=== PATIENT | female | born 1995 | race Caucasian/White ===

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

== ENCOUNTER 2017-12-22 23:55 | Emergency (ER) | payer MEDICAID, OTHER ==
[~2017-12-22] VITALS: Ht 167.6 cm; Wt 72.6 kg
[2017-12-22 23:57] VITALS: BP 123/88
[2017-12-23] MEDS ORDERED: IBUPROFEN 600 MG TABLET PO ONE (00:30)
== END 2017-12-23 00:35 | disposition home or self-care (01) ==
LOC: ER 12-23
DX: J06.9 Acute upper respiratory infection, unspecified (principal); H66.92 Otitis media, unspecified, left ear
CPT/HCPCS: 99283; A4606; Z7610

== ENCOUNTER 2018-03-15 23:10 | Emergency (ER) | payer MEDICAID ==
[~2018-03-15] VITALS: Ht 167.6 cm; Wt 74.8 kg
[2018-03-15 23:30] VITALS: BP 116/73
== END 2018-03-16 02:25 | disposition home or self-care (01) ==
LOC: ER 23:12
DX: K64.9 Unspecified hemorrhoids (principal)
CPT/HCPCS: A4606; Z7610

== ENCOUNTER 2021-11-23 15:37 | Emergency (ER) | payer MEDICAID ==
[~2021-11-23] VITALS: Ht 167.6 cm; Wt 72.6 kg
[2021-11-23 16:01] VITALS: BP 132/75
[2021-11-23 17:53] LABS: BILIRUBIN,URINE NEGATIVE (NEGATIVE); COLOR,URINE YELLOW (YELLOW); LEUKOCYTE ESTERASE ,URINE NEGATIVE (NEGATIVE); NITRITE, URINE NEGATIVE (NEGATIVE); PROTEIN,URINE NEGATIVE (NEGATIVE); UGLUCOSE NEGATIVE (NEGATIVE); UROBILINOGEN,URINE 0.2 EU/dL (0.2)
[2021-11-23 18:29] LABS: BACTERIA,URINE None seen /HPF (None Seen); RBC,URINE 21-50 /HPF (0-2); WBC,URINE 0-2 /HPF (0-3)
--- NOTE | 2021-11-23 19:28 | NUR ---
Endorsed care to JAYDEN Nelson
[2021-11-23] MEDS ORDERED: METR-147 PO (19:36)
--- NOTE | 2021-11-23 22:19 | NUR ---
Patient discharged to home in stable condition. Written and verbal after care instructions given. Patient verbalizes understanding of instruction.
== END 2021-11-23 22:19 | disposition home or self-care (01) ==
LOC: ER 15:46
DX: N76.0 Acute vaginitis (principal); Z79.899 Other long term (current) drug therapy
CPT/HCPCS: 76856-TC; 81001; 84703-TC; 87210-TC; 87491; 87591

== ENCOUNTER 2023-04-25 10:18 | Emergency (ER) | payer BC, MEDICAID ==
[~2023-04-25] VITALS: Ht 165.1 cm; Wt 89.4 kg
[~2023-04-25 10:18] MED LIST: METR-147 PO
[2023-04-25] MEDS ORDERED: MORPHINE SULFATE INJ 4 MG/ML DISP.SYRIN ONE (10:49)
[2023-04-25] MEDS ORDERED: MORPHINE SULFATE INJ 2 MG/ML DISP.SYRIN IV ONE (11:00)
[2023-04-25] MEDS ORDERED: IV NS 0.9% 1,000 ML BAG IV ONE (11:00)
[2023-04-25 11:31] LABS: APPEARANCE,URINE CLEAR (CLEAR); BILIRUBIN,URINE 1+ (NEGATIVE); BLOOD, URINE TRACE-INTA Ery/uL (NEGATIVE); COLOR,URINE YELLOW (YELLOW); KETONES,URINE TRACE mg/dL (NEGATIVE); LEUKOCYTE ESTERASE ,URINE NEGATIVE (NEGATIVE); NITRITE, URINE NEGATIVE (NEGATIVE); PROTEIN,URINE NEGATIVE (NEGATIVE); UGLUCOSE NEGATIVE (NEGATIVE); UROBILINOGEN,URINE 0.2 EU/dL (0.2)
[2023-04-25 11:33] LABS: PREGNANCY TEST URINE QUAL NEGATIVE (NEGATIVE)
[2023-04-25 11:40] LABS: ADD URINE CULTURE YES; BACTERIA,URINE Many /HPF (None Seen); RBC,URINE 0-2 /HPF (0-2); SQUAMOUS EPITHELIAL CELL,UR Moderate /HPF (None Seen); WBC,URINE 0-3 /HPF (0-3)
[2023-04-25 11:58] LABS: BASOPHILS % (AUTO) 0.2 % (0.0-2.0); EOSINOPHILS # (AUTO) 0.1 K/uL (0.0-0.7); EOSINOPHILS % (AUTO) 0.9 % (0.0-6.0); HEMATOCRIT 47 % (33-45); HEMOGLOBIN 15.5 g/dL (11.5-14.8); LYMPHOCYTES # (AUTO) 1.1 K/uL (0.8-4.8); LYMPHOCYTES % (AUTO) 8.4 % (20.0-44.0); MEAN CORPUSCULAR HEMOGLOBIN 29 PG (26.0-33.0); MEAN CORPUSCULAR HGB CONC 33 g/dl (31.0-36.0); MEAN CORPUSCULAR VOLUME 88 fL (82-100); MONOCYTES # (AUTO) 0.7 K/uL (0.1-1.30); MONOCYTES % (AUTO) 5.6 % (2.0-12.0); NEUTROPHILS % (AUTO) 84.9 % (43.0-81.0); PLATELET COUNT (AUTO) 274 K/uL (150-450); RED BLOOD CELL COUNT(AUTO) 5.34 MIL/uL (4.0-5.2); RED CELL DISTRIBUTION WIDTH 13.6 % (11.5-15.0); WHITE BLOOD COUNT (AUTO) 12.9 K/uL (4.3-11.0)
[2023-04-25 12:17] LABS: ALBUMIN 3.9 g/dL (3.4-5.0); BILIRUBIN,DIRECT 0.2 mg/dL (0.0-0.2); BILIRUBIN,TOTAL 0.9 mg/dL (0.2-1.0); CALCIUM, SERUM 9.1 mg/dL (8.5-10.1); CREATININE 0.8 mg/dL (0.6-1.3); POTASSIUM 3.1 mmol/L (3.5-5.1)
[2023-04-25] MEDS ORDERED: NAPR-1164 PO (12:30)
[2023-04-25] MEDS ORDERED: HYDR-3972 PO (12:30)
[2023-04-25 13:22] VITALS: BP 135/84; TEMP 97.8; O2SAT 98
[2023-04-25] MEDS ORDERED: HYDR-3980 PO (14:22)
== END 2023-04-25 13:22 | disposition home or self-care (01) ==
LOC: ER 10:18
DX: N94.89 Other specified conditions associated with female genital organs and menstrual cycle (principal); F17.200 Nicotine dependence, unspecified, uncomplicated; Z79.899 Other long term (current) drug therapy
CPT/HCPCS: 99285; 96374; 76856; 96361; 85025; 80048; 87086; 83690; 80076; 84703; 81001; 36415; J2270; J7030

== ENCOUNTER 2023-04-27 09:05 | Emergency (ER) | payer BC, MEDICAID ==
[~2023-04-27] VITALS: Ht 165.1 cm; Wt 89.4 kg
[~2023-04-27 09:05] MED LIST changes: +HYDR-3972 PO; +HYDR-3980 PO; +NAPR-1164 PO
[2023-04-27] MEDS ORDERED: HYDROMORPHONE INJ 2 MG/ML DISP.SYRIN ONE ×2 (09:25→11:47)
[2023-04-27] MEDS ORDERED: ONDANSETRON HCL/PF 4 MG/2 ML VIAL ONE (09:25)
[2023-04-27] MEDS ORDERED: IV NS 0.9% 500 ML BAG IV ONE (09:30)
[2023-04-27] MEDS ORDERED: HYDROMORPHONE INJ 2 MG/ML DISP.SYRIN IV ONE (09:30)
[2023-04-27] MEDS ORDERED: ONDANSETRON HCL/PF 4 MG/2 ML VIAL IVP ONE (09:30)
[2023-04-27 09:50] LABS: BASOPHILS % (AUTO) 0.3 % (0.0-2.0); EOSINOPHILS # (AUTO) 0.1 K/uL (0.0-0.7); EOSINOPHILS % (AUTO) 0.8 % (0.0-6.0); HEMATOCRIT 47 % (33-45); HEMOGLOBIN 15.5 g/dL (11.5-14.8); LYMPHOCYTES # (AUTO) 1.5 K/uL (0.8-4.8); LYMPHOCYTES % (AUTO) 10.1 % (20.0-44.0); MEAN CORPUSCULAR HEMOGLOBIN 29 PG (26.0-33.0); MEAN CORPUSCULAR HGB CONC 33 g/dl (31.0-36.0); MEAN CORPUSCULAR VOLUME 87 fL (82-100); MONOCYTES # (AUTO) 0.8 K/uL (0.1-1.30); NEUTROPHILS # (AUTO) 12.7 K/uL (1.8-8.9); NEUTROPHILS % (AUTO) 83.8 % (43.0-81.0); PLATELET COUNT (AUTO) 309 K/uL (150-450); RED BLOOD CELL COUNT(AUTO) 5.38 MIL/uL (4.0-5.2); RED CELL DISTRIBUTION WIDTH 13.4 % (11.5-15.0); WHITE BLOOD COUNT (AUTO) 15.2 K/uL (4.3-11.0)
[2023-04-27 10:15] LABS: CALCIUM, SERUM 9.3 mg/dL (8.5-10.1); CREATININE 0.8 mg/dL (0.6-1.3); POTASSIUM 2.9 mmol/L (3.5-5.1)
[2023-04-27 10:19] LABS: ALBUMIN 4.1 g/dL (3.4-5.0); BILIRUBIN,DIRECT 0.2 mg/dL (0.0-0.2); BILIRUBIN,TOTAL 0.9 mg/dL (0.2-1.0); TOTAL PROTEIN, SERUM 8.3 g/dL (6.4-8.2)
[2023-04-27 10:47] LABS: APPEARANCE,URINE CLEAR (CLEAR); BILIRUBIN,URINE 1+ (NEGATIVE); BLOOD, URINE TRACE-INTA Ery/uL (NEGATIVE); COLOR,URINE DARK YELLOW (YELLOW); KETONES,URINE 2+ mg/dL (NEGATIVE); LEUKOCYTE ESTERASE ,URINE NEGATIVE (NEGATIVE); NITRITE, URINE NEGATIVE (NEGATIVE); PH,URINE 6.5 (5.0-8.0); PROTEIN,URINE TRACE mg/dl (NEGATIVE); UGLUCOSE NEGATIVE (NEGATIVE); UROBILINOGEN,URINE 0.2 EU/dL (0.2)
[2023-04-27 10:50] LABS: PREGNANCY TEST URINE QUAL NEGATIVE (NEGATIVE)
[2023-04-27] MEDS ORDERED: IOHEXOL-300 100 ML VIAL IV ONE (10:54)
[2023-04-27] MEDS ORDERED: IV NS 0.9% 250 ML IV ONE (10:54)
[2023-04-27 11:10] LABS: ADD URINE CULTURE YES; BACTERIA,URINE 2+ /HPF (None Seen); MUCUS,URINE Few /LPF (None Seen); WBC,URINE 0-2 /HPF (0-3)
[2023-04-27] MEDS ORDERED: LIDOCAINE HCL/MPF 1% 30 ML VIAL IJ ONE (11:46)
[2023-04-27] MEDS ORDERED: LIDOCAINE VISCOUS 2% UD 15 ML UDC ONE (11:46)
[2023-04-27] MEDS ORDERED: LIDOCAINE VISCOUS 2% UD 15 ML UDC MM ONE (12:00)
[2023-04-27] MEDS ORDERED: LIDOCAINE HCL/PF 1% 30 ML VIAL TP ONE (12:00)
[2023-04-27] MEDS ORDERED: HYDROMORPHONE 1 MG/1 ML DISP.SYRIN IV ONE (12:00)
[2023-04-27] MEDS ORDERED: OXYC-128 PO (12:39)
[2023-04-27] MEDS ORDERED: SULF1TAB48 PO (12:39)
[2023-04-27 13:09] VITALS: BP 138/78; TEMP 98; O2SAT 100
== END 2023-04-27 13:10 | disposition home or self-care (01) ==
LOC: ER 09:08
DX: N75.1 Abscess of Bartholin's gland (principal); N83.292 Other ovarian cyst, left side; F17.200 Nicotine dependence, unspecified, uncomplicated
CPT/HCPCS: 99285; 74177; 96374; 56420; 76856; 96375; 85025; 80048; 87086; 83690; 80076; 84703; 81001; 36415; 84702; 96376; J1170 ×2; J3490 ×2; J2405; J7050; J7040; Q9967; A6407

== ENCOUNTER 2023-07-08 16:37 | Emergency (ER) | payer BC, MEDICAID ==
[~2023-07-08] VITALS: Ht 165.1 cm; Wt 86.2 kg
[~2023-07-08 16:37] MED LIST changes: +OXYC-128 PO; +SULF1TAB48 PO
[2023-07-08 18:07] VITALS: BP 132/88; TEMP 98.4; O2SAT 97
== END 2023-07-08 18:07 | disposition home or self-care (01) ==
LOC: ER 17:06
DX: F29 Unspecified psychosis not due to a substance or known physiological condition (principal); F20.9 Schizophrenia, unspecified